=== PATIENT | male | born 1965 | race Caucasian/White ===

== ENCOUNTER 2021-04-16 19:31 | Emergency (ER) | payer OTHER ==
[2021-04-16 19:52] VITALS: BMI 24.5
[2021-04-16 21:02] LABS: BASO % 0.5 % (0-2.0); EOS % 7.6 % (0-4.5); HEMATOCRIT 37.9 % (35.4-49); HEMOGLOBIN 12.6 GM/dL (11.7-16.9); LYMPH % 36.8 % (8-40); MCH 31.5 pg (25.7-33.7); MCHC 33.2 g/dl (32.0-35.9); MEAN PLT VOLUME 7.5 fl (7.5-11.1); MONO % 5.7 % (3.8-10.2); NEUT % 49.4 % (42.8-82.8); PLATELET COUNT 223 10^3/uL (134-434); RBC 3.99 M/mm3 (4.00-5.60); RDW 18.1 % (11.9-15.9)
[2021-04-16 21:08] LABS: INR 0.9 (0.83-1.09); PROTHROMBIN TIME (PATIENT) 11.1 SEC (9.7-13.0)
[2021-04-16 21:11] LABS: ACTIVATED PTT 28.2 SECONDS (25.2-36.5)
[2021-04-16 21:29] LABS: CHLORIDE 106 mmol/L (98-107); SODIUM 141 mmol/L (136-145)
[2021-04-16 21:31] LABS: CALCIUM 8.5 mg/dL (8.5-10.1)
[2021-04-16 21:33] LABS: ALBUMIN 3.6 g/dl (3.4-5.0); ANION GAP 11 MMOL/L (8-16); BLOOD UREA NITROGEN 9.6 mg/dL (7-18); CO2 24 mmol/L (21-32); GLUCOSE,RANDOM 76 mg/dL (74-106)
[2021-04-16 21:35] LABS: CREATININE 0.9 mg/dL (0.55-1.3); SGOT/AST 33 U/L (15-37)
[2021-04-16 21:37] LABS: BILIRUBIN,TOTAL 0.4 mg/dL (0.2-1); TOT PROT 7.7 g/dl (6.4-8.2)
[2021-04-16 21:39] LABS: ALK PHOS 99 U/L (45-117)
[2021-04-16 21:44] LABS: SGPT/ALT 21 U/L (13-61)
[2021-04-17 04:27] VITALS: BP 142/92; PULSE 86; TEMP 97.3
== END 2021-04-17 06:52 | disposition home or self-care (01) ==
LOC: JER 19:31
DX: F10.10 Alcohol abuse, uncomplicated (principal)
CPT/HCPCS: 36415; 70450-TC; 71045-TC-FY; 80053; 80307; 82550; 82553; 84484; 85025; 85610; 85730; 93005; 93010; 99285-25

== ENCOUNTER 2021-04-17 07:16 | Inpatient (IN) | payer OTHER ==
[2021-04-17 07:32] VITALS: BMI 22.3
[2021-04-17] MEDS ORDERED: IBUPROFEN 400 MG TABLET (FP) PO PRN (07:37)
[2021-04-17] MEDS ORDERED: LORazepam 1 MG TABLET PO PRN (07:37)
[2021-04-17] MEDS ORDERED: BISMUTH SUBSALICYLATE 524 MG/30 ML PO PRN (07:37)
[2021-04-17] MEDS ORDERED: hydrOXYzine PAMOATE 25 MG CAPSULE (FP) PO PRN (07:37)
[2021-04-17] MEDS ORDERED: ONDANSETRON *ODT* 4 MG TABLET SL PRN (07:37)
[2021-04-17] MEDS ORDERED: NICOTINE POLACRILEX 2 MG GUM BUC PRN (07:37)
[2021-04-17] MEDS ORDERED: MENTHOL/PHENOL 1 EACH UD MM PRN (07:37)
[2021-04-17] MEDS ORDERED: LORazepam 2 MG TABLET PO ONE (07:37)
[2021-04-17] MEDS ORDERED: MAGNESIUM HYDROX 2400MG/30ML ORAL SUSPENSION 30 ML CUP PO PRN (07:37)
[2021-04-17] MEDS ORDERED: MAG HYDROX/AL HYDROX/SIMETH 30 ML UNIT-DOSE CUP PO PRN (07:37)
[2021-04-17] MEDS ORDERED: MAGNESIUM CITRATE 300 ML BOTTLE PO PRN (07:37)
[2021-04-17] MEDS ORDERED: ACETAMINOPHEN 325 MG TABLET (FP) PO PRN ×2 (07:37)
[2021-04-17] MEDS ORDERED: P-EPHED 60MG/TRIPROLIDI 2.5MG TABLET PO PRN (07:37)
[2021-04-17] MEDS ORDERED: guaiFENesin 200 MG/10 ML 10 ML UNIT-DOSE CUPS PO PRN (07:37)
[2021-04-17] MEDS: POTASSIUM CHLORIDE TABS 20 MEQ TABLET.ER (FP) PO SCH ×2 (11:22→18:30)
[2021-04-17] MEDS: PRENATAL VITAMINS W/ FOLIC ACID TABLET (FP) PO SCH (11:22)
[2021-04-17] MEDS: LORazepam 2 MG TABLET PO SCH ×3 (11:23→22:37)
[2021-04-17] MEDS: NICOTINE 14 MG/24 HOURS TOPICAL PATCH TD SCH (11:28)
[2021-04-17] MEDS: levETIRAcetam 500 MG TABLET (FP) PO SCH ×2 (14:44→22:37)
[2021-04-17] MEDS: METHOCARBAMOL 500 MG TABLET PO PRN (18:04)
[2021-04-17] MEDS: MELATONIN 5 MG TABLETS PO SCH (22:37)
[2021-04-17] MEDS: THIAMINE HCL 100 MG TABLET (FP) PO SCH (22:37)
[2021-04-18] MEDS: LORazepam 2 MG TABLET PO SCH ×4 (05:14→21:59)
[2021-04-18 09:28] LABS: HEMATOCRIT 39.6 % (35.4-49); HEMOGLOBIN 13.4 GM/dL (11.7-16.9); MCH 31.8 pg (25.7-33.7); MCHC 33.8 g/dl (32.0-35.9); MEAN CELL VOLUME 94.1 fl (80-96); MEAN PLT VOLUME 8.8 fl (7.5-11.1); RBC 4.21 M/mm3 (4.00-5.60); RDW 18.1 % (11.9-15.9); WHITE BLOOD COUNT 4.3 K/mm3 (4.0-10.0)
[2021-04-18 10:02] LABS: ALBUMIN 3.3 g/dl (3.4-5.0); BLOOD UREA NITROGEN 5.4 mg/dL (7-18); CALCIUM 8.7 mg/dL (8.5-10.1)
[2021-04-18 10:07] LABS: BILIRUBIN,TOTAL 1.6 mg/dL (0.2-1); TOT PROT 7.5 g/dl (6.4-8.2)
[2021-04-18 10:10] LABS: CREATININE 0.6 mg/dL (0.55-1.3)
[2021-04-18] MEDS: NICOTINE 14 MG/24 HOURS TOPICAL PATCH TD SCH (10:51)
[2021-04-18] MEDS: PRENATAL VITAMINS W/ FOLIC ACID TABLET (FP) PO SCH (10:52)
[2021-04-18] MEDS: levETIRAcetam 500 MG TABLET (FP) PO SCH ×2 (10:52→21:58)
[2021-04-18 12:27] LABS: PLATELET COUNT 131 10^3/uL (134-434)
[2021-04-18] MEDS: THIAMINE HCL 100 MG TABLET (FP) PO SCH (21:58)
[2021-04-18] MEDS: MELATONIN 5 MG TABLETS PO SCH (21:59)
[2021-04-18] MEDS: METHOCARBAMOL 500 MG TABLET PO PRN (22:01)
[2021-04-19] MEDS: LORazepam 1 MG TABLET PO SCH ×4 (05:11→22:29)
[2021-04-19] MEDS: PRENATAL VITAMINS W/ FOLIC ACID TABLET (FP) PO SCH (10:12)
[2021-04-19] MEDS: levETIRAcetam 500 MG TABLET (FP) PO SCH ×2 (10:12→22:29)
[2021-04-19] MEDS: NICOTINE 14 MG/24 HOURS TOPICAL PATCH TD SCH (10:13)
[2021-04-19] MEDS: THIAMINE HCL 100 MG TABLET (FP) PO SCH (22:29)
[2021-04-19] MEDS: MELATONIN 5 MG TABLETS PO SCH (22:34)
[2021-04-20] MEDS ORDERED: LORazepam 0.5 MG TABLET PO PRN
[2021-04-20] MEDS: LORazepam 0.5 MG TABLET PO SCH ×2 (05:15→10:00)
[2021-04-20 09:04] VITALS: BP 124/74; PULSE 94; TEMP 97.9
[2021-04-20] MEDS: levETIRAcetam 500 MG TABLET (FP) PO SCH (09:12)
[2021-04-20] MEDS: NICOTINE 14 MG/24 HOURS TOPICAL PATCH TD SCH (09:12)
[2021-04-20] MEDS: PRENATAL VITAMINS W/ FOLIC ACID TABLET (FP) PO SCH (09:12)
[2021-04-21] MEDS ORDERED: LORazepam 0.5 MG TABLET PO ONE (05:00)
== END 2021-04-20 09:45 | disposition home or self-care (01) | DRG 774 ==
LOC: YASAS 07:16 → Y6N 07:29
PROVIDERS: ADMIT Allergy & Immunology; ATTEND Allergy & Immunology
PROC: HZ2ZZZZ Detoxification Services for Substance Abuse Treatment (ICD-10-PCS; principal; 2021-04-17)
DX: F10.230 Alcohol dependence with withdrawal, uncomplicated (principal); F14.20 Cocaine dependence, uncomplicated; F17.210 Nicotine dependence, cigarettes, uncomplicated; F10.220 Alcohol dependence with intoxication, uncomplicated; F19.24 Other psychoactive substance dependence with psychoactive substance-induced mood disorder; R56.00 Simple febrile convulsions; M54.5 Low back pain; G89.29 Other chronic pain; Z91.81 History of falling; Z56.0 Unemployment, unspecified; Z91.013 Allergy to seafood
CPT/HCPCS: 36415; 80053; 85027; 86780; C9803; U0003; U0005